=== PATIENT | female | born 2000 | race American Indian/Alaskan Native ===

== ENCOUNTER 2019-09-02 11:41 | Emergency (ER) | payer SELFPAY ==
[2019-09-02 12:02] VITALS: BP 124/74
--- NOTE | 2019-09-02 12:03 | Event Note ---
ED Screening Note Date of service: 09/02/19 Time: 12:02 ED Screening Note: 19 y o female presents with prod cough causing cp and sob x 1 day This initial assessment/diagnostic orders/clinical plan/treatment(s) is/are subject to change based on patients health status, clinical progression and re- assessment by fellow clinical providers in the ED. Further treatment and workup at subsequent clinical providers discretion. Patient/guardian urged not to elope from the ED as their condition may be serious if not clinically assessed and managed. Initial orders include: cxr
--- NOTE | 2019-09-02 12:44 | XRay Report ---
CHEST 2 VIEWS INDICATION: Cough, chest pain, shortness of breath. COMPARISON: None FINDINGS: Support devices: None. Heart: Within normal limits. Lungs/pleura: No acute air space or interstitial disease. No pneumothorax. Additional findings: Moderate thoracolumbar scoliosis. IMPRESSION: No acute findings. Signer Name: Neil Costa Jr, MD Signed: 09/02/2019 12:39 PM Workstation Name: [id number]
--- NOTE | 2019-09-02 13:33 | Emergency Department Report ---
Minor Respiratory - HPI Chief Complaint: Upper Respiratory Infection Stated Complaint: CHEST PAIN/COUGHING Time Seen by Provider: 09/02/19 13:28 Duration: 1 week Pain Location: Throat Minor Respiratory: Yes Rhinorrhea (nasal congestion), Yes Sore Throat (2/10 x 2 days), Yes Able to Tolerate Fluids, Yes Cough (with green phleghm), No Ear Pain, No Sick Contacts, No Hemoptysis, No Chest Pain, No Shortness of Breath, No Fever (chills) Other History: 19 yo female c/o cold symptoms x 1 week that is worsening. no medication taken. Denies CP or SOB. Denies pain ED Review of Systems ROS: Stated complaint: CHEST PAIN/COUGHING Other details as noted in HPI Constitutional: chills Eyes: denies: eye discharge ENT: throat pain, congestion. denies: ear pain, epistaxis Respiratory: cough. denies: shortness of breath, SOB with exertion, SOB at rest, stridor, wheezing Cardiovascular: denies: chest pain, palpitations, edema, syncope Gastrointestinal: denies: nausea, vomiting Musculoskeletal: denies: back pain, joint swelling, arthralgia, myalgia Skin: denies: rash Neurological: denies: headache, vertigo ED Past Medical Hx - Past Medical History Previous Medical History?: Yes Additional medical history: eczema - Surgical History Past Surgical History?: No - Family History Family history: hypertension - Social History Smoking Status: Current Every Day Smoker Substance Use Type: Marijuana - Medications Home Medications: Home Medications Medication Instructions Recorded Confirmed Last Taken Type Nitrofurantoin [place]/M-Cryst 100 mg PO Q12HR #14 capsule 06/13/16 Unknown Rx [Macrobid CAP] ALBUTEROL Inhaler (OR & NICU) 2 puff IH Q6H PRN #1 inhalation 09/02/19 Unknown Rx [ProAir HFA Inhaler] Amoxicillin/K Clav Tab [Augmentin 1 tab PO Q12HR #20 tab 09/02/19 Unknown Rx 875MG TAB] Cetirizine HCl [ZyrTEC] 10 mg PO QAM 14 Days #14 capsule 09/02/19 Unknown Rx Fluticasone [Flonase] 1 spray NS QDAY 14 Days #1 bottle 09/02/19 Unknown Rx Inhaler, Assist Devices [Space 1 each MC ONCE #1 spacer 09/02/19 Unknown Rx Chamber Plus] guaiFENesin/CODEINE [Robitussin AC] 10 ml PO QHS PRN #70 oral.liqd 09/02/19 Unknown Rx methylPREDNISolone [Medrol 4MG 4 mg PO QAM 6 Days #1 tab.ds.pk 09/02/19 Unknown Rx DOSEPAK (21 tabs)] Minor Respiratory Exam - Exam General: Vital signs noted. No distress. Alert and acting appropriately. This is a 19 yo female well nourished, well developed in no acute distress HEENT: Yes Moist Mucous Membranes (uvula midline), Yes Rhinorrhea (nasal mucosa congstion with clear drainage), No Pharyngeal Erythema, No Pharyngeal Exudates, No Conjuctival Injection, No Frontal Tenderness, No Maxillary Tenderness Ear: Neither TM Bulge (rina middle ear effusion), Neither TM Erythema, Neither EAC Pain, Neither EAC Discharge Neck: Yes Supple (FROM), No Adenopathy Lungs: Yes Good Air Exchange, Yes Wheezes (upper lung dixon), Yes Cough (dry), No Ronchi, No Stridor, No Labored Respirations, No Retractions, No Use of Accessory Muscles, No Other Abnormal Lung Sounds Heart: Yes Regular, No Murmur Abdomen: Yes Normal Bowel Sounds (all quadrants), No Tenderness (all quadrants), No Peritoneal Signs Skin: No Rash, No Edema Neurologic: Alert and oriented, no deficits. Musculoskeletal: Unremarkable. ED Course Vital Signs 09/02/19 12:01 Temperature 98.6 F Pulse Rate 98 H Respiratory 20 Rate Blood Pressure 124/74 O2 Sat by Pulse 97 Oximetry - Reevaluation(s) Reevaluation #1: 09/02/19 15:04 Patient given decadron 10 mg IM and Duoneb x 1 treatment. Upon reevaluation, lung sounds clear ED Medical Decision Making - Radiology Data Radiology results: report reviewed Chest xray dictated by radiologist and report reviewed by myself. Findings [facility] [address] [place] [address] XRay Report Signed Patient: IRAJ RAE MR#: [id number] : 2000 Acct:[id number] Age/Sex: 19 / F ADM Date: 09/02/19 Loc: ED Attending Dr: Ordering Physician: BECKIE CHANG Date of Service: 09/02/19 Procedure(s): XR chest routine 2V Accession Number(s): [id number] cc: BECKIE CHANG Fluoro Time In Minutes: CHEST 2 VIEWS INDICATION: Cough, chest pain, shortness of breath. COMPARISON: None FINDINGS: Support devices: None. Heart: Within normal limits. Lungs/pleura: No acute air space or interstitial disease. No pneumothorax. Additional findings: Moderate thoracolumbar scoliosis. IMPRESSION: No acute findings. Signer Name: Neil Costa Jr, MD Signed: 09/02/2019 12:39 PM Workstation Name: [id number] Transcribed By: TTR Dictated By: NEIL COSTA JR, MD Electronically Authenticated By: NEIL COSTA JR, MD Signed Date/Time: 09/02/19 1239 DD/DT: - Medical Decision Making 19-year-old patient presented with a cough and cold symptoms and found to have bronchitis with cough. She was treated with nebulizer treatment in emergency room and given steroid intramuscular. Patient is stable and in no acute decision. Chest x-ray shows no acute cardiopulmonary findings. Patient discharged home in stable condition with prescription for albuterol, Flonase, Zyrtec guaifenesin with codeine, Medrol Dosepak and Augmentin. - Differential Diagnosis PNA, Bronchitis, viral syndrome, sinusitis, rhinitis Critical care attestation.: If time is entered above; I have spent that time in minutes in the direct care of this critically ill patient, excluding procedure time. ED Disposition Clinical Impression: Cough in adult Bronchitis, acute Qualifiers: Bronchitis organism: other organism Qualified Code(s): J20.8 - Acute bronchitis due to other specified organisms Disposition: DC-01 TO HOME OR SELFCARE Is pt being admited?: No Does the pt Need Aspirin: No Condition: Stable Instructions: Acute Bronchitis (ED), Acute Cough (ED) Additional Instructions: Please follow up with your PCP or [facility] as instructed return to ED if your symptoms worsens Take medication as prescribed Take cough medicine at night but please do not drive or operate heavy machinery while taking medication increase your fluid intake Prescriptions: guaiFENesin/CODEINE [Robitussin AC] 10 ml PO QHS PRN #70 oral.liqd PRN Reason: Cough Amoxicillin/K Clav Tab [Augmentin 875MG TAB] 1 tab PO Q12HR #20 tab Fluticasone [Flonase] 1 spray NS QDAY 14 Days #1 bottle methylPREDNISolone [Medrol 4MG DOSEPAK (21 tabs)] 4 mg PO QAM 6 Days #1 tab. ds.pk ALBUTEROL Inhaler (OR & NICU) [ProAir HFA Inhaler] 2 puff IH Q6H PRN #1 inhalation PRN Reason: Shortness Of Breath Inhaler, Assist Devices [Space Chamber Plus] 1 each MC ONCE #1 spacer Cetirizine HCl [ZyrTEC] 10 mg PO QAM 14 Days #14 capsule Referrals: PRIMARY CARE, [Primary Care Provider] - 2-3 Days [facility] [Outside] - 2-3 Days Forms: Work/School Release Form(ED)
[2019-09-02] MEDS ORDERED: dexAMETHasone 4 MG/ML VIAL IM STA (13:34)
[2019-09-02] MEDS ORDERED: IPRATROPIUM/ALBUTEROL SULFATE 3 ML AMPUL.NEB IH ONE (13:34)
== END 2019-09-02 15:24 | disposition home or self-care (01) ==
LOC: ED 11:41
DX: J20.8 Acute bronchitis due to other specified organisms (principal); F17.200 Nicotine dependence, unspecified, uncomplicated; F12.10 Cannabis abuse, uncomplicated; Z79.899 Other long term (current) drug therapy
CPT/HCPCS: 71046; 94640; 96372; 99283; J1100; 94644